=== PATIENT | female | born 1955 | race African-American/Black ===

== ENCOUNTER 2023-08-13 00:27 | Inpatient (IN) | payer MEDICARE, OTHER ==
[~2023-08-13] VITALS: Ht 165.1 cm; Wt 95.3 kg
[2023-08-13 01:04] LABS: BASOPHILS # (AUTO) 0.1 K/UL (0.0-0.2); EOSINOPHILS # (AUTO) 0.2 K/uL (0.0-0.7); EOSINOPHILS % (AUTO) 2.7 % (0.0-7.0); HEMATOCRIT 39.2 % (31.2-41.9); HEMOGLOBIN 13.5 g/dL (10.9-14.3); LYMPHOCYTES # (AUTO) 2.7 K/uL (0.8-4.8); LYMPHOCYTES % (AUTO) 44.1 % (20.5-51.5); MEAN CORPUSCULAR HEMOGLOBIN 30.4 uug (24.7-32.8); MEAN CORPUSCULAR HGB CONC 34 g/dL (32.3-35.6); MEAN CORPUSCULAR VOLUME 88.2 fL (75.5-95.3); MONOCYTES # (AUTO) 0.4 K/uL (0.1-1.30); MONOCYTES % (AUTO) 6.6 % (0.0-11.0); NEUTROPHILS # (AUTO) 2.8 K/uL (1.8-8.9); NEUTROPHILS % (AUTO) 45.6 % (38.5-71.5); PLATELET COUNT (AUTO) 169 K/uL (179-408); RED BLOOD CELL COUNT(AUTO) 4.45 MIL/uL (3.63-4.92); RED CELL DISTRIBUTION WIDTH 15.7 % (12.3-17.7)
[2023-08-13 01:09] LABS: DIFFERENTIAL COMMENT 1
[2023-08-13 01:09] LABS: *BILIRUBIN,URIN NEGATIVE (NEGATIVE); *BLOOD, URINE NEGATIVE (NEGATIVE); *CLARITY,URINE CLEAR (CLEAR); *COLOR,URINE YELLOW (YELLOW); *KETONES,URINE NEGATIVE (NEGATIVE); *PROTEIN,URINE NEGATIVE (NEGATIVE); *UROBILINOGEN,URINE 0.2 E.U./dl (NORMAL); LEUKOCYTE ESTERASE ,URINE NEGATIVE (NEGATIVE); NITRITE, URINE NEGATIVE (NEGATIVE); PH,URINE 5.5 (5.0-8.0); UGLUCOSE NEGATIVE (NEGATIVE)
[2023-08-13 01:11] LABS: CALCIUM 9.6 mg/dL (8.5-10.1); CARBON DIOXIDE 33 mmol/L (21-32); CHLORIDE 100 mmol/L (98-107); CREATININE 1.3 mg/dL (0.6-1.3); GLUCOSE 121 mg/dL (74-106); POTASSIUM 3.4 mmol/L (3.5-5.1); SODIUM SERUM 140 mmol/L (136-145); UREA NITROGEN, BLOOD 19 mg/dL (7-18)
[2023-08-13 01:16] LABS: ACETAMINOPHEN < 2.0 ug/mL (10-30); ALANINE AMINOTRANSFERASE 19 U/L (14-59); ALBUMIN 3.6 g/dL (3.4-5.0); ALKALINE PHOSPHATASE 134 U/L (50-136); ASPARTATE AMINOTRANSFERASE < 5 U/L (15-37); BILIRUBIN,DIRECT 0.1 mg/dL (0.0-0.2); BILIRUBIN,TOTAL 0.3 mg/dL (0.2-1.0); TOTAL PROTEIN, SERUM 7.8 g/dL (6.4-8.2)
[2023-08-13 01:18] LABS: ETHANOL < 3 MG/DL (0-10)
[2023-08-13 01:24] LABS: THYROID STIMULATING HORMONE 0.938 mIU/mL (0.358-3.740)
[2023-08-13 01:26] LABS: *AMPHETAMINE, URINE NEGATIVE (NEGATIVE); *BARBITURATE, URINE NEGATIVE (NEGATIVE); *BENZODIAZEPINE, URINE NEGATIVE (NEGATIVE); *CANNABINOID, URINE NEGATIVE (NEGATIVE); *COCCAINE, URINE NEGATIVE (NEGATIVE); *OPIATE, URINE POSITIVE (NEGATIVE); *PHENCYCLIDINE SCREEN,URINE NEGATIVE (NEGATIVE)
[2023-08-13 01:27] LABS: FENTANYL, URINE NEGATIVE (NEGATIVE)
[2023-08-13] MEDS ORDERED: BISA10SU61 RC (03:41)
[2023-08-13] MEDS ORDERED: TEMA15CA5 PO (03:41)
[2023-08-13] MEDS ORDERED: DIVA-78 PO (03:41)
[2023-08-13] MEDS ORDERED: BUSP15TA3 PO (03:41)
[2023-08-13] MEDS ORDERED: FURO40TA5 PO (03:41)
[2023-08-13] MEDS ORDERED: MAGN400O6 PO (03:41)
[2023-08-13] MEDS ORDERED: RISP1TAB7 PO (03:41)
[2023-08-13] MEDS ORDERED: SENN8.6T19 PO (03:41)
[2023-08-13] MEDS ORDERED: POLY250017 PO (03:41)
[2023-08-13] MEDS ORDERED: GABA-536 PO (03:41)
[2023-08-13] MEDS ORDERED: ACET-3117 PO (03:41)
[2023-08-13] MEDS ORDERED: AMLO2.5T4 PO (03:41)
[2023-08-13] MEDS ORDERED: ACET1TAB23 PO (03:41)
[2023-08-13] MEDS ORDERED: RISP2TAB5 PO (03:41)
[2023-08-13] MEDS ORDERED: NA P133E RC (03:41)
[2023-08-13] MEDS ORDERED: FOLI1TAB94 PO (03:41)
[2023-08-13] MEDS ORDERED: ASPI81TA31 PO (03:41)
[2023-08-13 08:30] VITALS: BP 113/65; TEMP 98.1; O2SAT 95
[2023-08-13] MEDS ORDERED: MAG HYDROX/AL HYDROX/SIMETH 30 ML LIQUID UDC PO PRN (08:45)
[2023-08-13] MEDS ORDERED: QUETIAPINE FUMARATE 25 MG TABLET PO PRN (08:45)
[2023-08-13] MEDS ORDERED: MAGNESIUM HYDROXIDE 30 ML LIQUID UDC PO PRN (08:45)
[2023-08-13] MEDS: BLOOD SUGAR DIAGNOSTIC 1 EACH STRIP VI ONE (09:11)
[2023-08-13] MEDS: POTASSIUM CHLORIDE 20 MEQ TAB.PRT.SR PO ONE (12:15)
[2023-08-13 16:02] VITALS: BP 121/63; TEMP 98.2; O2SAT 98
[2023-08-13] MEDS: risperiDONE 0.5 MG TABLET PO SCH (16:47)
[2023-08-13 20:00] VITALS: BP 115/64; TEMP 98.3; O2SAT 96
[2023-08-13] MEDS: TRAZODONE 50 MG TABLET PO SCH (21:07)
[2023-08-13] MEDS: DIVALPROEX 125 MG TABLET.DR PO SCH (21:07)
[2023-08-14 07:52] VITALS: BP 114/53; TEMP 97.8; O2SAT 98
[2023-08-14] MEDS: ACETAMINOPHEN 325 MG TABLET PO PRN (14:43)
[2023-08-14] MEDS ORDERED: BISACODYL 10 MG SUPP.RECT RC PRN (15:00)
[2023-08-14 15:04] LABS: BILIRUBIN,TOTAL 0.3 mg/dL (0.2-1.0); CALCIUM 9.1 mg/dL (8.5-10.1); CREATININE 0.8 mg/dL (0.6-1.3); TOTAL PROTEIN, SERUM 6.8 g/dL (6.4-8.2)
[2023-08-14 15:21] VITALS: BP 127/69; TEMP 98.2; O2SAT 98
[2023-08-14] MEDS: GABAPENTIN 400 MG CAPSULE PO SCH (17:24)
[2023-08-14 20:00] VITALS: BP 119/65; TEMP 97.8; O2SAT 96
[2023-08-14] MEDS: SENNOSIDES 1 TABLET PO SCH (20:04)
[2023-08-15 09:15] VITALS: BP 118/52; TEMP 98.4; O2SAT 96
[2023-08-15] MEDS: ASPIRIN 81 MG TAB.CHEW PO SCH (09:29)
[2023-08-15] MEDS: FOLIC ACID 1 MG TABLET PO SCH (09:29)
[2023-08-15 15:09] VITALS: BP 132/80; TEMP 98.2; O2SAT 98
[2023-08-15] MEDS: risperiDONE 0.5 MG TABLET PO PRN (18:17)
[2023-08-15 20:00] VITALS: BP 149/78; TEMP 97.9; O2SAT 98
[2023-08-15] MEDS: risperiDONE 1 MG TABLET PO SCH (20:45)
[2023-08-16] MEDS: ZOLPIDEM 5 MG TABLET PO PRN (00:38)
[2023-08-16 08:19] VITALS: BP 113/60; TEMP 97.8; O2SAT 98
[2023-08-16 16:31] VITALS: BP 132/83; TEMP 97.9; O2SAT 98
[2023-08-16] MEDS: TRAZODONE 50 MG TABLET PO SCH (20:23)
[2023-08-16 22:49] VITALS: BP 134/92; TEMP 97.5
[2023-08-17 09:12] VITALS: BP 123/58; TEMP 97.8; O2SAT 97
[2023-08-17 16:53] VITALS: BP 112/70; TEMP 97.9; O2SAT 97
[2023-08-17 20:05] VITALS: BP 124/66; TEMP 97.8; O2SAT 96
[2023-08-17] MEDS ORDERED: IBUPROFEN 600 MG TABLET ONE (20:08)
[2023-08-17] MEDS: IBUPROFEN 600 MG TABLET PO PRN (20:13)
[2023-08-17] MEDS: risperiDONE 2 MG TABLET PO SCH (20:13)
[2023-08-18 08:33] VITALS: BP 118/68; TEMP 97.9; O2SAT 97
[2023-08-18] MEDS: risperiDONE 1 MG TABLET PO SCH (08:40)
[2023-08-18] MEDS: NICOTINE 21 MG/24HR PATCH TD SCH (14:17)
[2023-08-18 16:29] VITALS: BP 146/95; TEMP 97.9; O2SAT 97
[2023-08-18 19:48] VITALS: BP 136/66; TEMP 98.1; O2SAT 96
[2023-08-19 08:25] VITALS: BP 96/47; TEMP 98; O2SAT 99
[2023-08-19 15:46] VITALS: BP 96/81; TEMP 98; O2SAT 99
[2023-08-19 19:47] VITALS: BP 101/82; TEMP 98.1; O2SAT 98
[2023-08-19] MEDS: DIVALPROEX 250 MG TABLET.DR PO SCH (20:36)
[2023-08-20 07:30] VITALS: BP 123/78; TEMP 97.7; O2SAT 100
[2023-08-20] MEDS: risperiDONE 2 MG TABLET PO SCH (12:10)
[2023-08-20 16:59] VITALS: BP 140/85; TEMP 97.6; O2SAT 100
[2023-08-20 20:00] VITALS: BP 132/87; TEMP 97.8; O2SAT 96
[2023-08-21 08:04] VITALS: BP 144/81; TEMP 98.2; O2SAT 100
[2023-08-21 15:16] VITALS: BP 150/99; TEMP 98; O2SAT 100
[2023-08-21 20:00] VITALS: BP 127/73; TEMP 97.6; O2SAT 97
[2023-08-22 07:58] VITALS: BP 135/83; TEMP 98; O2SAT 98
[2023-08-22 13:00] VITALS: BP 134/84; TEMP 98; O2SAT 100
== END 2023-08-22 16:00 | DRG 885 ==
LOC: ER 00:41 → MEDSURG3 07:44 → GPSOV3 08:16 → GPS 13:31
PROVIDERS: ADMIT Psychiatry & Neurology Psychiatry; ATTEND Nurse Practitioner Family
DX: F25.9 Schizoaffective disorder, unspecified (principal); Z91.51 Personal history of suicidal behavior; F20.0 Paranoid schizophrenia; D69.6 Thrombocytopenia, unspecified; F41.9 Anxiety disorder, unspecified; R79.89 Other specified abnormal findings of blood chemistry; E87.6 Hypokalemia; F19.21 Other psychoactive substance dependence, in remission; I10 Essential (primary) hypertension; F17.210 Nicotine dependence, cigarettes, uncomplicated; R60.0 Localized edema; R73.9 Hyperglycemia, unspecified
CPT/HCPCS: 36415; 73630; 80164; 84443; 85025; 85049; 93005; A4663; G0480; J3490